=== PATIENT | female | born 1955 | race Caucasian/White ===

== ENCOUNTER → 2018-08-12 | Outpatient (CLI) | payer MEDICARE ==
[2018-08-12 10:28] LABS: HCT 43.9 % (34.0-46.0); MCH 28.3 pg (25.0-35.0); MCHC 31.9 g/dL (31.0-37.0); MCV 88.6 fL (80.0-100.0); Mean Platelet Volume 6.5; Platelet Count 210 k/uL (150-450); RBC 4.95 m/uL (3.80-5.40); RDW 14.3 % (11.5-15.5); WBC 6.2 k/uL (3.8-10.6)
[2018-08-12 17:28] LABS: Vitamin D 25 Hydroxy 41.2 ng/mL (30.0-100.0)
[2018-08-12 18:02] LABS: Albumin 4.5 g/dL (3.80-4.90); Albumin/Globulin Ratio 2.05 (1.20-2.10); Anion Gap 9.3 mmol/L (4.00-12.00); Calcium 9.4 mg/dL (8.7-10.3); Carbon Dioxide 29.7 mmol/L (21.6-31.8); Globulin 2.2 g/dL (1.6-3.3); LDL Cholesterol,Calculated 252.8 mg/dL (0.0-131.0); Potassium 4.4 mmol/L (3.5-5.5); T4, Free (Free Thyroxine) 0.6 ng/dL (0.80-1.80); Total Bilirubin 0.5 mg/dL (0.2-1.2); Total Protein 6.7 g/dL (6.2-8.2); VLDL Calculation 20.2 mg/dL (5.00-40.00)
[2018-08-12 18:22] LABS: Hemoglobin A1C 5.6 % (4.0-6.0)
== END ==
LOC: LABWHC1 09:20
PROVIDERS: ATTEND Nurse Practitioner Adult Health
DX: Z00.00 Encounter for general adult medical examination without abnormal findings (principal); E03.9 Hypothyroidism, unspecified; M81.0 Age-related osteoporosis without current pathological fracture; J31.0 Chronic rhinitis
CPT/HCPCS: 36415; 80053; 80061; 82306; 82607; 83036; 84439; 84443; 85027

== ENCOUNTER → 2018-09-05 | Outpatient (CLI) | payer MEDICARE ==
--- NOTE | 2018-09-05 16:07 | BD ---
EXAMINATION TYPE: Axial Bone Density DATE OF EXAM: 09/05/2018 COMPARISON: NONE CLINICAL HISTORY: Height: 5 FT 1 IN Weight: 163 FRAX RISK QUESTIONS: History of Fracture in Adulthood: YES RISK FACTORS HISTORY OF: Spine Fracture: LUMBAR FX When: 40 YEARS AGO History of Wrist Fracture: RT WRIST When: AGE 11 Family History of Osteoporosis: YES Active: YES Postmenopausal woman: AGE 47 MEDICATIONS: Thyroid Medications: YES Which medication: ARMOUR THYROID How Lon Additional Medications: ARMOUR, THYROID,CLARITIN, Additional History: EXAM MEASUREMENTS: Bone mineral density about the R hip (g/cm2): 0.834 Bone mineral density about the L hip (g/cm2): 0.836 T Score values are as follows: -----R Neck: -1.5 -----L Neck: -1.5 -----R Total: -1.5 -----L Total: -1.3 Bone mineral density has: INCREASED 4.3 % since study of: 2011 Bone mineral density about the L Wrist (g/cm2): 0.558 T Score values are as follows: -----Dist. R+U: -2.5 -----Prox. R+U: -0.6 -----Radius total: -1.9 WRIST NOT DONE BEFORE IMPRESSION: Osteopenia (T Score between -2.5 and -1). There is slightly increased risk of fracture and the patient may be considered for treatment. Re-Screen 2-5 years. NOTE: T-SCORE=SD OF THE YOUNG ADULT MEAN.
--- NOTE | 2018-09-06 10:12 | MM ---
Reason for exam: screening (asymptomatic). Last mammogram was performed 6 years and 1 month ago. History: Patient is postmenopausal. Family history of breast cancer in mother and breast cancer in aunt. Physical Findings: A clinical breast exam by your physician is recommended on an annual basis and results should be correlated with mammographic findings. MG 3D Screening Mammo W/Cad Bilateral CC and MLO view(s) were taken. Prior study comparison: July 23, 2012, bilateral digital screening mammo w/CAD. March 25, 2010, bilateral digital screening mammogram. There are scattered fibroglandular densities. There is no discrete abnormality. No significant changes when compared with prior studies. ASSESSMENT: Negative, BI-RAD 1 RECOMMENDATION: Routine screening mammogram of both breasts in 1 year.
== END | disposition home or self-care (01) ==
LOC: RADMAMWWP 09:42
PROVIDERS: ATTEND Internal Medicine
DX: Z12.31 Encounter for screening mammogram for malignant neoplasm of breast (principal); M85.80 Other specified disorders of bone density and structure, unspecified site; M81.0 Age-related osteoporosis without current pathological fracture
CPT/HCPCS: 77063; 77067; 77080

== ENCOUNTER → 2018-10-29 | Outpatient (CLI) | payer MEDICARE ==
[2018-10-29 18:53] LABS: LDL Cholesterol,Calculated 149.4 mg/dL (0.0-131.0); VLDL Calculation 21.6 mg/dL (5.00-40.00)
== END ==
LOC: LABWHC1 12:01
PROVIDERS: ATTEND Nurse Practitioner Adult Health
DX: E78.5 Hyperlipidemia, unspecified (principal); E03.9 Hypothyroidism, unspecified
CPT/HCPCS: 36415; 80061; 84439; 84443

== ENCOUNTER → 2019-05-14 | Outpatient (CLI) | payer MEDICARE ==
[2019-05-14 19:50] LABS: T4, Free (Free Thyroxine) 0.9 ng/dL (0.80-1.80)
== END | disposition home or self-care (01) ==
LOC: LABWHC1 11:32
PROVIDERS: ATTEND Nurse Practitioner Adult Health
DX: E03.9 Hypothyroidism, unspecified (principal)
CPT/HCPCS: 36415; 84439; 84443; 86376

== ENCOUNTER → 2019-09-25 | Outpatient (CLI) | payer MEDICARE ==
--- NOTE | 2019-09-25 15:44 | FL ---
EXAMINATION: Cervical and Thoracic Esophagram DATE OF EXAM: 09/25/2019 CLINICAL INDICATION: 64-year-old female dysphasia, epigastric pain, reflux. Medication getting stuck in the upper esophagus with regurgitation. COMPARISON: None Total Fluoroscopy Time: 2 minutes 45 seconds. Total images: 54 . FINDINGS: The swallowing mechanism is normal. A tiny Zenker's diverticulum is noted off towards the left posteriorly and there is moderate hypertro phy of the cricopharyngeus. No obstruction to the flow of contrast. 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 There is normal course, caliber, and mucosa of the thoracic esophagus. Moderate tertiary peristaltic waves are present and there is prolonged pooling of contrast within the esophagus requiring upright p ositioning and ingestion of water to clear contrast from the esophagus. Bouts of intraesophageal refl ux are demonstrated. There is a small hiatal hernia. Valsalva and positional maneuvers did not elicit any gastroesophageal reflux on the present exam. IMPRESSION: 1. Dysmotility and presbyesophagus with prolonged pooling of contrast requiring upright positioning a nd ingestion of water to clear the esophagus. Episodes of intraesophageal reflux are seen. 2. Moderate CP hypertrophy and a very tiny Zenker's diverticulum. 3. Small hiatal hernia. Gastroesophageal reflux could not be elicited during the course of the exam. Note that this does not exclude its possibility.
== END ==
LOC: RADUSWWP 10:58
PROVIDERS: ATTEND Internal Medicine Gastroenterology
DX: K22.8 Other specified diseases of esophagus (principal); K21.9 Gastro-esophageal reflux disease without esophagitis
CPT/HCPCS: 74220

== ENCOUNTER 2021-03-15 18:00 | Observation (INO) | payer MEDICARE ==
[2021-03-15] MEDS ORDERED: SODIUM CHLORIDE 0.9% 500 ML 500 ML IV STA (18:35)
[2021-03-15] MEDS ORDERED: DILTIAZEM DRIP BOLUS FROM BAG 1 MG SOLN IV ONE (18:35)
[2021-03-15] MEDS ORDERED: HEPARIN SODIUM 1,000 UN/ML (10ML VL) IV ONE (18:36)
--- NOTE | 2021-03-15 18:39 | ED ---
General Adult HPI - General Chief complaint: Arrhythmia/Palpitations Stated complaint: Heart Palpitations Time Seen by Provider: 03/15/21 18:05 Source: patient, RN notes reviewed, old records reviewed Mode of arrival: wheelchair Limitations: no limitations - History of Present Illness Initial comments: This is a 65-year-old female presents emergency department stating that she's feeling of fluttering in her heart since about 4:00 this afternoon. Patient states she took her heart rate was very fast decided come in. Patient states she might of had a little shortness of breath earlier but currently does not have any shortness of breath.. Patient denies any chest pain or discomfort. Patient denies any recent fever chills or cough. 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 Patient denies any abdominal pain patient's nausea vomiting diarrhea. Patient denies any lightheadedness or dizziness. Patient isn't swollen to the legs or calf tenderness. - Related Data Home Medications Medication Instructions Recorded Confirmed Ginkgo Biloba 500 mg PO DAILY 03/15/21 03/15/21 Levothyroxine Sodium [Synthroid] 100 mcg PO DAILY 03/15/21 03/15/21 Loratadine [Claritin] 10 mg PO DAILY 03/15/21 03/15/21 Multivitamins, Thera [Multivitamin 1 tab PO DAILY 03/15/21 03/15/21 (formulary)] Allergies Allergy/AdvReac Type Severity Reaction Status Date / Time No Known Allergies Allergy Verified 03/15/21 20:05 Review of Systems ROS Statement: Those systems with pertinent positive or pertinent negative responses have been documented in the HPI. ROS Other: All systems not noted in ROS Statement are negative. Past Medical History Past Medical History: Thyroid Disorder Past Surgical History: Tonsillectomy, Tubal Ligation Smoking Status: Never smoker Past Alcohol Use History: Occasional Past Drug Use History: None Reported General Exam - General Exam Comments Initial Comments: GENERAL: Patient is well-developed and well-nourished. Patient is nontoxic and well- hydrated and is in mild distress. ENT: Neck is soft and supple. No significant lymphadenopathy is noted. Oropharynx is clear. Moist mucous membranes. Neck has full range of motion without eliciting any pain. EYES: The sclera were anicteric and conjunctiva were pink and moist. Extraocular movements were intact and pupils were equal round and reactive to light. Eyelids were unremarkable. PULMONARY: Unlabored respirations. Good breath sounds bilaterally. No audible rales rho nchi or wheezing was noted. CARDIOVASCULAR: His heart rates about 150 beats a minute and irregular. ABDOMEN: Soft and nontender with normal bowel sounds. SKIN: Skin is clear with no lesions or rashes and otherwise unremarkable. NEUROLOGIC: Patient is alert and oriented x3. Cranial nerves II through XII are grossly intact. Motor and sensory are also intact. Normal speech, volume and content. Symmetrical smile. MUSCULOSKELETAL: Normal extremities with adequate strength and full range of motion. No lower extremity swelling or edema. No calf tenderness. LYMPHATICS: No significant lymphadenopathy is noted PSYCHIATRIC: Normal psychiatric evaluation. Limitations: no limitations Course Vital Signs 03/15/21 03/15/21 03/15/21 18:06 19:00 19:10 Temperature 97.8 F Pulse Rate 128 H 75 Pulse Rate [ 78 Business Continuity Planning Director ] Respiratory 18 18 Rate Blood Pressure 106/77 121/77 O2 Sat by Pulse 97 96 Oximetry 03/15/21 19:27 Temperature Pulse Rate 74 Pulse Rate [ Business Continuity Planning Director ] Respiratory 18 Rate Blood Pressure O2 Sat by Pulse 96 Oximetry Medical Decision Making - Medical Decision Making EKG shows atrial fibrillation with rapid ventricular response at 142 bpm cardiac is 60 QT interval 316 QTC is 486 per patient's EKG shows some slight ST segment depression in precordial leads V3 through V6. Patient appeared to convert and the EKG showed normal sinus rhythm at 76 bpm SC interval is 180 QRS is 62 QT interval 390 QTC is 441. Patient's ST segment depression has resolved as well. Patient was placed on heparin. Patient's chest x-ray shows no acute abnormality. I spoke with Dr. Steen he agreed to admit the patient admitted the patient wrote admitting orders. - Lab Data Result diagrams: 03/15/21 18:49 03/15/21 18:49 Lab Results 03/15/21 03/15/21 03/15/21 Range/Units 18:49 18:49 18:49 WBC 6.5 (3.8-10.6) k/uL RBC 5.19 (3.80-5.40) m/uL Hgb 15.7 (11.4-16.0) gm/dL Hct 45.4 (34.0-46.0) % MCV 87.5 (80.0-100.0) fL MCH 30.3 (25.0-35.0) pg MCHC 34.6 (31.0-37.0) g/dL RDW 14.1 (11.5-15.5) % Plt Count 201 (150-450) k/uL MPV 7.0 Neutrophils % 59 % Lymphocytes % 30 % Monocytes % 6 % Eosinophils % 2 % Basophils % 1 % Neutrophils # 3.8 (1.3-7.7) k/uL Lymphocytes # 2.0 (1.0-4.8) k/uL Monocytes # 0.4 (0-1.0) k/uL Eosinophils # 0.1 (0-0.7) k/uL Basophils # 0.0 (0-0.2) k/uL PT 9.8 (9.0-12.0) sec INR 0.9 (<1.2) APTT 23.3 (22.0-30.0) sec Sodium 138 (137-145) mmol/L Potassium 4.3 (3.5-5.1) mmol/L Chloride 107 (98-107) mmol/L Carbon Dioxide 22 (22-30) mmol/L Anion Gap 9 mmol/L BUN 18 H (7-17) mg/dL Creatinine 0.62 (0.52-1.04) mg/dL Est GFR (CKD-EPI)AfAm >90 (>60 ml/min/1.73 sqM) Est GFR (CKD-EPI)NonAf >90 (>60 ml/min/1.73 sqM) Glucose 113 H (74-99) mg/dL Calcium 10.0 (8.4-10.2) mg/dL Magnesium 2.1 (1.6-2.3) mg/dL Total Bilirubin 0.3 (0.2-1.3) mg/dL AST 30 (14-36) U/L ALT 24 (4-34) U/L Alkaline Phosphatase 80 (38-126) U/L Troponin I (0.000-0.034) ng/mL Total Protein 7.1 (6.3-8.2) g/dL Albumin 4.5 (3.5-5.0) g/dL TSH 3.060 (0.465-4.680) mIU/L 03/15/21 Range/Units 18:49 WBC (3.8-10.6) k/uL RBC (3.80-5.40) m/uL Hgb (11.4-16.0) gm/dL Hct (34.0-46.0) % MCV (80.0-100.0) fL MCH (25.0-35.0) pg MCHC (31.0-37.0) g/dL RDW (11.5-15.5) % Plt Count (150-450) k/uL MPV Neutrophils % % Lymphocytes % % Monocytes % % Eosinophils % % Basophils % % Neutrophils # (1.3-7.7) k/uL Lymphocytes # (1.0-4.8) k/uL Monocytes # (0-1.0) k/uL Eosinophils # (0-0.7) k/uL Basophils # (0-0.2) k/uL PT (9.0-12.0) sec INR (<1.2) APTT (22.0-30.0) sec Sodium (137-145) mmol/L Potassium (3.5-5.1) mmol/L Chloride (98-107) mmol/L Carbon Dioxide (22-30) mmol/L Anion Gap mmol/L BUN (7-17) mg/dL Creatinine (0.52-1.04) mg/dL Est GFR (CKD-EPI)AfAm (>60 ml/min/1.73 sqM) Est GFR (CKD-EPI)NonAf (>60 ml/min/1.73 sqM) Glucose (74-99) mg/dL Calcium (8.4-10.2) mg/dL Magnesium (1.6-2.3) mg/dL Total Bilirubin (0.2-1.3) mg/dL AST (14-36) U/L ALT (4-34) U/L Alkaline Phosphatase (38-126) U/L Troponin I <0.012 (0.000-0.034) ng/mL Total Protein (6.3-8.2) g/dL Albumin (3.5-5.0) g/dL TSH (0.465-4.680) mIU/L Critical Care Time Critical Care Time: Yes Total Critical Care Time: 35 Disposition Clinical Impression: Atrial fibrillation with rapid ventricular response Disposition: ADMITTED IP TO THIS HOSP Referrals: Odell Navarro MD [Primary Care Provider] - 1-2 days Time of Disposition: 20:58
[2021-03-15] MEDS ORDERED: DILTIAZEM 125 MG in SODIUM CHLORIDE 0.9% 100 ML IV SCH (18:45)
[2021-03-15] MEDS ORDERED: HEPARIN SOD,PORK IN 0.45% NACL 25,000 UNIT in 0.45% NACL 1 250ML.BAG IV SCH (18:45)
[2021-03-15 19:07] LABS: Basophils % (A) 1 %; Eosinophils # (A) 0.1 k/uL (0-0.7); Eosinophils % (A) 2 %; HCT 45.4 % (34.0-46.0); HGB 15.7 gm/dL (11.4-16.0); Lymphocytes % (A) 30 %; MCH 30.3 pg (25.0-35.0); MCHC 34.6 g/dL (31.0-37.0); MCV 87.5 fL (80.0-100.0); Monocytes # (A) 0.4 k/uL (0-1.0); Monocytes % (A) 6 %; Neutrophils # (A) 3.8 k/uL (1.3-7.7); Neutrophils % (A) 59 %; Platelet Count 201 k/uL (150-450); RBC 5.19 m/uL (3.80-5.40); RDW 14.1 % (11.5-15.5); WBC 6.5 k/uL (3.8-10.6)
[2021-03-15 19:14] LABS: INR 0.9 (<1.2)
[2021-03-15 19:15] LABS: Partial Thromboplastin Time 23.3 sec (22.0-30.0); Prothrombin Time 9.8 sec (9.0-12.0)
[2021-03-15 19:19] LABS: ALT 24 U/L (4-34); AST 30 U/L (14-36); African American GFR (CKD) >90 (>60 ml/min/1.73 sqM); Albumin 4.5 g/dL (3.5-5.0); Alkaline Phosphatase 80 U/L (38-126); Anion Gap 9 mmol/L; Blood Urea Nitrogen 18 mg/dL (7-17); Carbon Dioxide 22 mmol/L (22-30); Chloride 107 mmol/L (98-107); Glucose 113 mg/dL (74-99); Magnesium 2.1 mg/dL (1.6-2.3); Non-African American GFR(CKD) >90 (>60 ml/min/1.73 sqM); Potassium 4.3 mmol/L (3.5-5.1); Sodium 138 mmol/L (137-145); Total Bilirubin 0.3 mg/dL (0.2-1.3); Total Protein 7.1 g/dL (6.3-8.2)
--- NOTE | 2021-03-15 20:44 | XR ---
EXAMINATION TYPE: XR chest 2V DATE OF EXAM: 03/15/2021 COMPARISON: 02/03/2021. HISTORY: Palpitations and dysrhythmia. TECHNIQUE: Frontal and lateral views of the chest are obtained. FINDINGS: There is no focal air space opacity, pleural effusion, or pneumothorax seen. The cardiac silhouette size is within normal limits. The osseous structures are intact. IMPRESSION: No acute cardiopulmonary process.
[2021-03-15] MEDS ORDERED: NITROGLYCERIN SL TABS 0.4 MG TAB SUBLINGUAL PRN (21:06)
[2021-03-16 01:27] LABS: Prothrombin Time 10.7 sec (9.0-12.0)
[2021-03-16] MEDS ORDERED: METOPROLOL TARTRATE 25 MG TAB PO SCH (09:00)
[2021-03-16] MEDS ORDERED: ASPIRIN 325 MG TAB PO SCH (09:00)
[2021-03-16] MEDS ORDERED: METOPROLOL TARTRATE 12.5 MG TAB PO SCH (09:00)
[2021-03-16 09:16] VITALS: RESP 16; TEMP 97.5
[2021-03-16] MEDS ORDERED: APIXABAN 5 MG TAB PO SCH (10:10)
--- NOTE | 2021-03-16 11:24 | P.CRDCN ---
History of Present Illness Consult date: 03/16/21 History of present illness: HISTORY OF PRESENT ILLNESS: This is a 65-year-old female with a past medical history significant for hypothyroidism. Patient does not follow with a manager drug safety and denies any previous cardiac history. We have been asked to see the patient in consultation for A. fib with RVR. Patient examined at the bedside. Patient reports she started a new job a few days ago working midnight shift. She states yesterday morning she went to bed around 8 AM and woke up around 2 PM and noticed she was having palpitations and shortness of breath. She had a tax appointment that she went to with her and afterwards she decided to come to the emergency room as she was still having symptoms. Upon presentation to the ER, patient was found to be in A. fib with RVR. The patient was started on a heparin drip and a Cardizem drip. She subsequently converted to sinus mechanism. Telemetry this morning reveals sinus mechanism with a heart rate in the 60s. EKG reveals A. fib with RVR. Subsequent EKG reveals sinus mechanism Chest xray no acute cardiopulmonary process Laboratory data: WBC 6.5. Hemoglobin 15.7. Platelet count 201. Sodium 138. Potassium 4.3. BUN 18. Creatinine 0.62. Magnesium 2.1. Troponin negative 3. TSH 3.060. Current home cardiac medications include none REVIEW OF SYSTEMS: At the time of my exam: CONSTITUTIONAL: Denies fever or chills. HEENT: Denies blurred vision, vision changes, or eye pain. Denies hemoptysis CARDIOVASCULAR: Denies chest pain. Denies orthopnea. Denies PND. Denies palpitations RESPIRATORY: Denies shortness of breath. GASTROINTESTINAL: Denies abdominal pain. Denies nausea or vomiting. HEMATOLOGIC: Denies bleeding disorders. GENITOURINARY: Denies any blood in urine. SKIN: Denies pruitis. Denies rash. PHYSICAL EXAM: VITAL SIGNS: Reviewed. GENERAL: Well-developed in no acute distress. HEENT: Head is normocephalic. Pupils are equal, round. Sclerae anicteric. Mucous membranes of the mouth are moist. Neck supple. No JVD or thyromegaly LUNGS: Respirations even and unlabored. Lungs essentially clear to auscultation bilaterally. HEART: Regular rate and rhythm. S1 and S2 heard. ABDOMEN: Soft. Nondistended. Nontender. EXTREMITIES: Normal range of motion. No clubbing or cyanosis. Peripheral pulses intact. No lower extremity edema NEUROLOGIC: Awake and alert. Oriented x 3. ASSESSMENT: Palpitations New-onset paroxysmal atrial fibrillation with RVR Hypothyroidism PLAN: Obtain 2-D echo to assess cardiac structure and function Continue telemetry monitoring Begin Eliquis 5 mg twice a day. Discontinue IV heparin Begin metoprolol tartrate 25 mg daily TSH obtained and within normal limits Patient may be discharged home this afternoon from a cardiac standpoint. She is to follow up with Dr. Covington in 2 weeks Nurse practitioner note has been reviewed by physician. Signing provider agrees with the documented findings, assessment, and plan of care. Past Medical History Past Medical History: Thyroid Disorder History of Any Multi-Drug Resistant Organisms: None Reported Past Surgical History: Tonsillectomy, Tubal Ligation Additional Past Surgical History / Comment(s): C5-C6 fusion Past Anesthesia/Blood Transfusion Reactions: No Reported Reaction Past Psychological History: No Psychological Hx Reported Smoking Status: Never smoker Past Alcohol Use History: Occasional Past Drug Use History: None Reported - Past Family History Brother(s) Family Medical History: Coronary Artery Disease (CAD) Mother Family Medical History: Coronary Artery Disease (CAD) Medications and Allergies Home Medications Medication Instructions Recorded Confirmed Type Ginkgo Biloba 500 mg PO DAILY 03/15/21 03/15/21 History Levothyroxine Sodium [Synthroid] 100 mcg PO DAILY 03/15/21 03/15/21 History Loratadine [Claritin] 10 mg PO DAILY 03/15/21 03/15/21 History Multivitamins, Thera [Multivitamin 1 tab PO DAILY 03/15/21 03/15/21 History (formulary)] Apixaban [Eliquis] 5 mg PO BID #60 tab 03/16/21 Rx Allergies Allergy/AdvReac Type Severity Reaction Status Date / Time No Known Allergies Allergy Verified 03/15/21 20:05 Physical Exam Vitals: Vital Signs Temp Pulse Pulse Resp BP BP Pulse Ox 03/16/21 08:00 97.5 F L 68 16 117/79 98 03/16/21 03:41 98.1 F 64 15 125/83 97 03/16/21 00:00 97.9 F 69 16 101/67 97 03/15/21 22:16 97.8 F 67 16 109/68 99 03/15/21 21:59 97.9 F 79 18 125/78 97 03/15/21 19:27 74 18 96 03/15/21 19:10 75 18 121/77 96 03/15/21 19:00 78 03/15/21 18:06 97.8 F 128 H 18 106/77 97 Intake and Output 03/15/21 03/16/21 03/16/21 22:59 06:59 14:59 Intake Total 540 540 800 Balance 540 540 800 Intake: Oral 540 540 800 Other: Voiding Method Toilet Toilet Toilet # Voids 1 2 1 Weight 70.307 kg 70.2 kg Results 03/15/21 18:49 03/15/21 18:49 Cardiac Enzymes 03/15/21 03/15/21 03/15/21 Range/Units 18:49 18:49 21:55 AST 30 (14-36) U/L Troponin I <0.012 <0.012 (0.000-0.034) ng/mL 03/16/21 Range/Units 00:36 AST (14-36) U/L Troponin I <0.012 (0.000-0.034) ng/mL Coagulation 03/15/21 03/16/21 03/16/21 Range/Units 18:49 00:36 00:36 PT 9.8 10.7 (9.0-12.0) sec APTT 23.3 49.3 H (22.0-30.0) sec 03/16/21 Range/Units 07:45 PT (9.0-12.0) sec APTT 44.0 H (22.0-30.0) sec CBC 03/15/21 Range/Units 18:49 WBC 6.5 (3.8-10.6) k/uL RBC 5.19 (3.80-5.40) m/uL Hgb 15.7 (11.4-16.0) gm/dL Hct 45.4 (34.0-46.0) % Plt Count 201 (150-450) k/uL Comprehensive Metabolic Panel 03/15/21 Range/Units 18:49 Sodium 138 (137-145) mmol/L Potassium 4.3 (3.5-5.1) mmol/L Chloride 107 (98-107) mmol/L Carbon Dioxide 22 (22-30) mmol/L BUN 18 H (7-17) mg/dL Creatinine 0.62 (0.52-1.04) mg/dL Glucose 113 H (74-99) mg/dL Calcium 10.0 (8.4-10.2) mg/dL AST 30 (14-36) U/L ALT 24 (4-34) U/L Alkaline Phosphatase 80 (38-126) U/L Total Protein 7.1 (6.3-8.2) g/dL Albumin 4.5 (3.5-5.0) g/dL Current Medications Generic Name Dose Route Start Last Admin Trade Name Freq PRN Reason Stop Dose Admin Apixaban 5 mg 03/16/21 10:10 Apixaban 5 Mg Tab PO BID JOSSE Protocol Metoprolol Tartrate 25 mg 03/17/21 09:00 Metoprolol Tartrate 25 Mg Tab PO DAILY JOSSE Nitroglycerin 0.4 mg 03/15/21 21:06 Nitroglycerin Sl Tabs 0.4 Mg Tab SUBLINGUAL Q5M PRN Chest Pain Intake and Output 03/15/21 03/16/21 03/16/21 22:59 06:59 14:59 Intake Total 540 540 800 Balance 540 540 800 Intake: Oral 540 540 800 Other: Voiding Method Toilet Toilet Toilet # Voids 1 2 1 Weight 70.307 kg 70.2 kg 03/15/21 18:49 03/15/21 18:49
[2021-03-16 11:40] LABS: Chol/HDL Ratio 3.55; LDL Cholesterol,Calculated 116.6 mg/dL (0.0-131.0); VLDL Calculation 31.4 mg/dL (5.00-40.00)
[2021-03-16 12:23] VITALS: BP 107/69; PULSE 59
--- NOTE | 2021-03-16 13:10 | P.HPIM ---
History of Present Illness H&P Date: 03/16/21 HISTORY AND PHYSICAL AND DISCHARGE SUMMARY: HISTORY OF PRESENT ILLNESS This is a 65-year-old female patient of Francois Mccord NP, with past medical history of seasonal ALLERGIES, hypothyroidism. The patient complains of fluttering in her chest. She has had this before but not significant. She does not follow with a director operating room. She states that yesterday around 4 PM she started feeling fluttering in her chest and heart rate was going fast, she had shortness of breath. She denies any lightheadedness or dizziness. She denies any history of TIA or stroke. Patient presented to [facility] emergency center for evaluation and found to be afebrile, heart rate 128, blood pressure 106/77, pulse ox 97% on room air. EKG was atrial fibrillation at a heart rate of 142. CBC was unremarkable. Electrolytes were normal. BUN 18 and creatinine 0.62. Blood sugar 113. TSH 3.060. Troponins were negative on 3 draws. Chest x-rays showed no acute cardiopulmonary process. Patient placed on the cardiac stepdown unit and cardiology consult. Echocardiogram has been ordered and patient transitioned from heparin to eliquis, started metoprolol tartrate 25 mg daily. Patient was cleared for discharge from cardiology and plan is to follow-up with Dr. Covington in 2 weeks. She has converted to sinus rhythm. REVIEW OF SYSTEMS Constitutional: No fever, no chills, no night sweats. No weight change. No weakness, fatigue or lethargy. No daytime sleepiness. EENT: No headache. No blurred vision or double vision, no loss of vision. No loss of Hearing, no ringing in the ears, no dizziness. No nasal drainage or congestion. No epistaxis. No sore throat. Lungs: reports shortness of breath, cough, no sputum production. No wheezing. Cardiovascular: No chest pain, no lower extremity edema. Reports palpitations. No paroxysmal nocturnal dyspnea. No orthopnea. No lightheadedness or dizziness. No syncopal episodes. Abdominal: No abdominal pain. No nausea, vomiting. No diarrhea. No con stipation. No bloody or tarry stools.. No loss of appetite. Genitourinary: No dysuria, increased frequency, urgency. No urinary retention. Musculoskeletal: No myalgias. No muscle weakness, no gait dysfunction, no frequent falls. No back pain. No neck pain. Integumentary: No wounds, no lesions. No rash or pruritus. No unusual bruising. No change in hair or nails. Neurologic: No aphasia. No facial droop. No change in mentation. No head injury. No headache. No paralysis. No paresthesia. Psychiatric: No depression. No anxiety. No mood swings. Endocrine: No abnormal blood sugars. No weight change. No excessive sweating or thirst. No cold intolerance. MEDICAL HISTORY Seasonal ALLERGIES Hypothyroidism Paroxysmal atrial fibrillation-new onset SURGICAL HISTORY C5/6 fusion in 1997 Tubal ligation Tonsillectomy Laparoscopic cholecystectomy SOCIAL HISTORY Patient was a smoker for 25 years and quit when she was 34 years old. She was smoking less than a pack per day. She drinks alcohol occasionally. She denies any marijuana or street drug use. She is and lives at home with her . FAMILY HISTORY Mother at age 88 from pneumonia with history of coronary artery disease and stents. Father at age 78 following colon resection. Patient has 2 brothers and 1 sister. One brother has from Maryuri Gehrig's disease and the other siblings are healthy. Patient has 4 children with no major medical problems. PHYSICAL EXAMINATION Gen: This is a 65-year-old female. Patient is resting in bed and appears to be comfortable in no acute distress. HEENT: Head is atraumatic, normocephalic. Pupils equal, round. Sclerae is an icteric. NECK: Supple. No JVD. No lymphadenopathy. No thyromegaly. LUNGS: Clear to auscultation. No wheezes or rhonchi. No intercostal retractions. HEART: Regular rate and rhythm. No murmur. ABDOMEN: Soft. Bowel sounds are present. No masses. No tenderness. EXTREMITIES: No pedal edema. No calf tenderness. NEUROLOGICAL: Patient is awake, alert and oriented x3. Cranial nerves 2 through 12 are grossly intact. ASSESSMENT AND PLAN 1. New onset atrial fibrillation with RVR, paroxysmal atrial fibrillation. Cardiology consult appreciated. Patient started on eliquis 5 g twice daily and Lopressor 25 mg daily, follow-up with Dr. Covington in 2 weeks. 2. Seasonal ALLERGIES. Continue loratadine. 3. Hypothyroidism. TSH normal, continue levothyroxine. Patient placed as an observation status DISCHARGE PLAN Home. DISCHARGE MEDICATION LIST Ginkgo Biloba 500 mg PO DAILY 03/15/21 [History] Levothyroxine Sodium [Synthroid] 100 mcg PO DAILY 03/15/21 [History] Loratadine [Claritin] 10 mg PO DAILY 03/15/21 [History] Multivitamins, Thera [Multivitamin (formulary)] 1 tab PO DAILY 03/15/21 [History] Apixaban [Eliquis] 5 mg PO BID #60 tab 03/16/21 [Rx] Metoprolol Tartrate [Lopressor] 25 mg PO DAILY #30 tab 03/16/21 [Rx] Impression and plan of care have been directed as dictated by the signing physician. Ann Marie Kiser nurse practitioner acting as scribe for signing physician. Past Medical History Past Medical History: Thyroid Disorder History of Any Multi-Drug Resistant Organisms: None Reported Past Surgical History: Tonsillectomy, Tubal Ligation Additional Past Surgical History / Comment(s): C5-C6 fusion Past Anesthesia/Blood Transfusion Reactions: No Reported Reaction Past Psychological History: No Psychological Hx Reported Smoking Status: Never smoker Past Alcohol Use History: Occasional Past Drug Use History: None Reported - Past Family History Brother(s) Family Medical History: Coronary Artery Disease (CAD) Mother Family Medical History: Coronary Artery Disease (CAD) Medications and Allergies Home Medications Medication Instructions Recorded Confirmed Type Ginkgo Biloba 500 mg PO DAILY 03/15/21 03/15/21 History Levothyroxine Sodium [Synthroid] 100 mcg PO DAILY 03/15/21 03/15/21 History Loratadine [Claritin] 10 mg PO DAILY 03/15/21 03/15/21 History Multivitamins, Thera [Multivitamin 1 tab PO DAILY 03/15/21 03/15/21 History (formulary)] Apixaban [Eliquis] 5 mg PO BID #60 tab 03/16/21 Rx Metoprolol Tartrate [Lopressor] 25 mg PO DAILY #30 tab 03/16/21 Rx Allergies Allergy/AdvReac Type Severity Reaction Status Date / Time No Known Allergies Allergy Verified 03/15/21 20:05 Physical Exam Vitals: Vital Signs Temp Pulse Pulse Resp BP BP Pulse Ox 03/16/21 08:00 97.5 F L 68 16 117/79 98 03/16/21 03:41 98.1 F 64 15 125/83 97 03/16/21 00:00 97.9 F 69 16 101/67 97 03/15/21 22:16 97.8 F 67 16 109/68 99 03/15/21 21:59 97.9 F 79 18 125/78 97 03/15/21 19:27 74 18 96 03/15/21 19:10 75 18 121/77 96 03/15/21 19:00 78 03/15/21 18:06 97.8 F 128 H 18 106/77 97 Intake and Output 03/15/21 03/16/21 03/16/21 22:59 06:59 14:59 Intake Total 540 540 800 Balance 540 540 800 Intake: Oral 540 540 800 Other: Voiding Method Toilet Toilet Toilet # Voids 1 2 1 Weight 70.307 kg 70.2 kg Results CBC & Chem 7: 03/15/21 18:49 03/15/21 18:49 Labs: Abnormal Lab Results - Last 24 Hours (Table) 03/15/21 03/16/21 03/16/21 Range/Units 18:49 00:36 07:45 APTT 49.3 H 44.0 H (22.0-30.0) sec BUN 18 H (7-17) mg/dL Glucose 113 H (74-99) mg/dL Thrombosis Risk Factor Assmnt - Choose All That Apply Each Risk Factor Represents 2 Points: Age 61-74 years Thrombosis Risk Factor Assessment Total Risk Factor Score: 2 Thrombosis Risk Factor Assessment Level: Low Risk
--- NOTE | 2021-03-16 14:00 | ECHOF ---
Referral Reason:LV function MEASUREMENTS -------- HEIGHT: 154.9 cm WEIGHT: 69.9 kg BP: 125/83 RVIDd: 2.9 cm (< 3.3) IVSd: 1.0 cm (0.6 - 1.1) LVIDd: 4.0 cm (3.9 - 5.3) LVPWd: 0.9 cm (0.6 - 1.1) IVSs: 1.4 cm LVIDs: 2.5 cm LVPWs: 1.4 cm LA Diam: 3.5 cm (2.7 - 3.8) LAESV Index (A-L): 30.12 ml/m Ao Diam: 3.0 cm (2.0 - 3.7) AV Cusp: 1.8 cm (1.5 - 2.6) MV EXCURSION: 13.189 mm (> 18.000) MV EF SLOPE: 77 mm/s (70 - 150) EPSS: 0.5 cm MV E Lee: 0.87 m/s MV DecT: 286 ms MV A Lee: 0.83 m/s MV E/A Ratio: 1.06 RAP: 5.00 mmHg RVSP: 28.76 mmHg FINDINGS -------- Sinus rhythm. This was a technically good study. The left ventricular size is normal. Left ventricular wall thickness is normal. Overall left vent ricular systolic function is normal with, an EF between 60 - 65 %. The right ventricle is normal in size. LA is midly dilated 29-33ml/m2. The right atrium is normal in size. Interatrial and interventricular septum intact. The aortic valve is trileaflet, and appears structurally normal. No aortic stenosis or regurgitation. There is trace to mild mitral regurgitation. Mild tricuspid regurgitation present. Right ventricular systolic pressure is normal at < 35 mmHg. Trace/mild (physiologic) pulmonic regurgitation. The aortic root size is normal. Normal inferior vena cava with normal inspiratory collapse consistent with estimated right atrial pre ssure of 5 mmHg. There is no pericardial effusion. CONCLUSIONS -------- 1. The left ventricular size is normal. 2. Left ventricular wall thickness is normal. 3. Overall left ventricular systolic function is normal with, an EF between 60 - 65 %. 4. LA is midly dilated 29-33ml/m2. 5. The aortic valve is trileaflet, and appears structurally normal. No aortic stenosis or regurgitati on. 6. There is trace to mild mitral regurgitation. 7. Mild tricuspid regurgitation present. 8. Trace/mild (physiologic) pulmonic regurgitation. 9. There is no pericardial effusion. WELL DRILL OPERATOR CABLE TOOL: Alexandra Infante RDCS
[2021-03-17] MEDS ORDERED: LEVOTHYROXINE 100 MCG TAB PO SCH (06:30)
[2021-03-17] MEDS ORDERED: LORATADINE 10 MG TAB PO SCH (09:00)
[2021-03-17] MEDS ORDERED: METOPROLOL TARTRATE 25 MG TAB PO SCH (09:00)
== END 2021-03-16 14:32 | disposition home or self-care (01) ==
LOC: SUPCPDRO 18:00 → EC 18:00 → 3SCARD 21:08
PROVIDERS: ADMIT Internal Medicine Geriatric Medicine; ATTEND Internal Medicine Geriatric Medicine
DX: I48.0 Paroxysmal atrial fibrillation (principal); J30.2 Other seasonal allergic rhinitis; E03.9 Hypothyroidism, unspecified; Z79.890 Hormone replacement therapy; Z98.51 Tubal ligation status; Z98.1 Arthrodesis status; Z87.891 Personal history of nicotine dependence; Z82.49 Family history of ischemic heart disease and other diseases of the circulatory system
CPT/HCPCS: 99291; 96366 ×2; 93005 ×2; 96361; 96365; 36415; 93306; 80061; 80053; 83735; 84443; 84484 ×2; 85025; 85610 ×2; 85730 ×2; 71046; G0378 ×2; J1644 ×2

== ENCOUNTER 2024-07-02 01:25 | Observation (INO) | payer MEDICARE ==
[2024-07-02] MEDS: DILTIAZEM 125 MG in SODIUM CHLORIDE 0.9% 100 ML IV SCH (02:15)
[2024-07-02] MEDS: DILTIAZEM DRIP BOLUS FROM BAG 1 MG SOLN IV ONE ×2 (02:16→02:41)
[2024-07-02] MEDS: SODIUM CHLORIDE 0.9% 1,000 ML IV STA (02:19)
[2024-07-02] MEDS: ASPIRIN 81 MG PO STA (02:21)
--- NOTE | 2024-07-02 02:37 | ED ---
General Adult HPI - General Chief complaint: Arrhythmia/Palpitations Stated complaint: irregular heart beat Time Seen by Provider: 07/02/24 01:32 Source: patient Mode of arrival: ambulatory Limitations: no limitations - History of Present Illness Initial comments: Patient is a 68-year-old female with a past medical history of atrial fibrillation presenting today for palpitations. Patient states that over the course of the weekend she intermittently felt a fluttery feeling in her chest. Sunday night she had 3 glasses of wine and smoked marijuana and subsequently had a syncopal episode after having the "fluttery feeling" again. She is not sure how long she was unconscious for though was lowered to the ground by family. Did not have any tongue biting, seizure-like activity or urinary incontinence with this episode. Since then she has had intermittent fluttery feelings in her chest. Last night she did have 1 glass of wine. She denies ill icit drug use. About 12:50 AM this morning she began having the fluttery feeling then. She states she took some "ginkgo biloba" without relief of symptoms. She states that over the last week she has also been using CBD patches to help with hip bursitis. She had an episode of atrial fibrillation about 5 years ago and was not started on medications at that time. She does not take any blood thinners currently. She denies any chest pain, dizziness or lightheadedness, difficulty in breathing, cough or hemoptysis, fevers or chills, abdominal pain, nausea, vomiting, diarrhea, lower extremity swelling. Denies smoking cigarettes, history of PE/DVT,'s cancers, recent travel surgery or hospitalizations. - Related Data Home Medications Medication Instructions Recorded Confirmed Ginkgo Biloba 500 mg PO DAILY 03/15/21 03/15/21 Levothyroxine Sodium [Synthroid] 100 mcg PO DAILY 03/15/21 03/15/21 Loratadine [Claritin] 10 mg PO DAILY 03/15/21 03/15/21 Multivitamins, Thera [Multivitamin 1 tab PO DAILY 03/15/21 03/15/21 (formulary)] Previous Rx's Medication Instructions Recorded Apixaban [Eliquis] 5 mg PO BID #60 tab 03/16/21 Metoprolol Tartrate [Lopressor] 25 mg PO DAILY #30 tab 03/16/21 Allergies Allergy/AdvReac Type Severity Reaction Status Date / Time No Known Allergies Allergy Verified 07/02/24 01:29 Review of Systems ROS Statement: Those systems with pertinent positive or pertinent negative responses have been documented in the HPI. ROS Other: All systems not noted in ROS Statement are negative. Past Medical History Past Medical History: Atrial Fibrillation, Thyroid Disorder History of Any Multi-Drug Resistant Organisms: None Reported Past Surgical History: Tonsillectomy, Tubal Ligation Additional Past Surgical History / Comment(s): C5-C6 fusion Past Anesthesia/Blood Transfusion Reactions: No Reported Reaction Past Psychological History: No Psychological Hx Reported Smoking Status: Never smoker Past Alcohol Use History: Occasional Past Drug Use History: Marijuana - Past Family History Brother(s) Family Medical History: Coronary Artery Disease (CAD) Mother Family Medical History: Coronary Artery Disease (CAD) General Exam - General Exam Comments Initial Comments: PE: CONSTITUTIONAL: [no apparent distress, well appearing] SKIN: [warm, dry, no jaundice, hives or petechiae] EYES:[ pupils are equally round, extraocular movements intact without nystagmus, clear conjunctiva, non-icteric sclera] HENT: [normocephalic, atraumatic, moist mucus membranes, oropharynx clear without exudates] NECK: , [Full range of motion, normal appearance] PULMONARY: [clear to auscultation without wheezes, rhonchi, or rales, normal excursion, no accessory muscle use and no stridor] CARDIOVASCULAR:[ regular rate, rhythm, normal S1 and S2. No appreciated murmurs, rubs or gallops. Strong radial pulses with intact distal perfusion. No lower extremity edema] GASTROINTESTINAL: [soft, active bowel sounds throughout, non-tender, non- distended, no palpable masses, no rebound or guarding. No hepatosplenomegaly] GENITOURINARY: MUSCULOSKELETAL: [Extremities have no gross deformity, no edema, redness, or swelling. No calf swelling ] NEUROLOGIC: [_a/o x 3, GCS 15, normal mentation and speech. Moves all e xtremities x 4 without motor or sensory deficit] PSYCHIATRIC:[ _normal mood and affect, thought process is clear and linear] Limitations: no limitations Course Vital Signs 07/02/24 01:26 Temperature 97.6 F Pulse Rate 51 L Respiratory 18 Rate Blood Pressure 156/83 O2 Sat by Pulse 98 Oximetry EKG Findings - EKG Comments: EKG Findings:: Atrial fibrillation with RVR, rate 145 bpm, QRS duration 86 ms, QT/QTc TC 81/364 ms, normal axis, no ST elevations or depressions, slight artifact present in lead V5, no Brugada pattern, no delta waves Medical Decision Making - Medical Decision Making Was pt. sent in by a medical professional or institution (, PA, PROPERTY CLAIMS ADJUSTER, urgent care, hospital, or detention...) When possible be specific @ -[No] Did you speak to anyone other than the patient for history (EMS, parent, family, police, friend...)? What history was obtained from this source @ -[No] Did you review nursing and triage notes (agree or disagree)? Why? @ -[I reviewed and agree with nursing and triage notes] Were old charts reviewed (outside hosp., previous admission, EMS record, old EKG, old radiological studies, urgent care reports/EKG's, detention records)? Report findings @ -Medical records reviewed- Patient had presented on 03/15/2021 for similar sensation, she was admitted to the hospital and started on Eliquis as well as metoprolol 25 mg daily. Of note patient does not currently take either of these medications. Echocardiogram done during that admission showed an EF between 60 and 65% Differential Diagnosis (chest pain, altered mental status, abdominal pain women, abdominal pain men, vaginal bleeding, weakness, fever, dyspnea, syncope, headache, dizziness, GI bleed, back pain, seizure, CVA, palpatations, mental health, musculoskeletal)? @Differential Palpitations Ventricular arrhythmias, atrial arrhythmias, myocardial infarction, anemia, thyrotoxicosis, electrolyte imbalance, hypokalemia, pulmonary embolism, pulmonary disease, drugs, alcohol, anxiety, stress.... This is not meant to be an all-inclusive list. EKG interpreted by me (3pts min.). @ -[As above] X-rays interpreted by me (1pt min.). @No cardiomegaly, consolidations or pleural effusions, no pneumothorax CT interpreted by me (1pt min.). @ -[None done] U/S interpreted by me (1pt. min.). @ -[None done] What testing was considered but not performed or refused? (CT, X-rays, U/S, labs)? Why? @ -[None] What meds were considered but not given or refused? Why? @ -[None] Did you discuss the management of the patient with other professionals (professionals i.e. , PA, PROPERTY CLAIMS ADJUSTER, lab, RT, psych nurse, social group worker, greenhouse florist, teacher, naval gunfire liaison officer, correctional counselor/case manager)? Give summary @ -[No] Was smoking cessation discussed for >3mins.? @ -[No] Was critical care preformed (if so, how long)? @Yes, 45 minutes Were there social determinants of health that impacted care today? How? (Homelessness, low income, unemployed, alcoholism, drug addiction, transportation, low edu. Level, literacy, decrease access to med. care, fpc, rehab)? @ -[No] Was there de-escalation of care discussed even if they declined (Discuss DNR or withdrawal of care, Hospice)? @ -[No] What co-morbidities impacted this encounter? (DM, HTN, Smoking, COPD, CAD, Cancer, CVA, ARF, Chemo, Hep., AIDS, mental health diagnosis, sleep apnea, morbid obesity)? @ -[None] Was patient admitted / discharged? Hospital course, mention meds given and route, prescriptions, significant lab abnormalities, going to OR and other pertinent info. @ -Admission- This is a pleasant 68-year-old female history of atrial fibrillation presenting today for fluttering in her chest. Has been on and off going for at least 4 days. Had a syncopal episode on Sunday. Recent increased intake and alcohol, smoked THC on Sunday as well, drinks two cups of coffee a day, I suspect likely contributing to her presentation today. Here is in A-fib with RVR, blood pressure stable pulse ox 98% on room air, patient well-appearing pleasant and conversant. Discussed plan of care for Cardizem bolus and drip, labs, chest x- ray, patient Dors is mild headache so Tylenol ordered as well. After 10 mg Cardizem bolus patient remained tachycardic. Full 0.25 mg/kg bolus is 11.55 mg, so additional 12 mg bolus given. If remains tachycardic, will trial oral metoprolol as was previously prescribed for the patient. As patient has been and out of a fib since Sunday, will initiate heparin at this point should patient ultimately require rhythm control/ cardioversion. Labs and imaging reviewed. Grossly within normal limits. Abnormal values not concerning for acute pathology related to presenting complaint. Undiagnosed new problem with uncertain prognosis? @ -[No] Drug Therapy requiring intensive monitoring for toxicity (Heparin, Nitro, Insulin, Cardizem)? @ -[No] Were any procedures done? @ -[No] Diagnosis/symptom? @ -A-fib with RVR Acute, or Chronic, or Acute on Chronic? Acute Uncomplicated (without systemic symptoms) or Complicated (systemic symptoms)? Complicated Side effects of treatment? @ -[No] Exacerbation, Progression, or Severe Exacerbation? @ -[No] Poses a threat to life or bodily function? How? (Chest pain, USA, PA, pneumonia, PE, COPD, DKA, ARF, appy, cholecystitis, CVA, Diverticulitis, Homicidal, Suicidal, threat to staff... and all critical care pts) Yes - Lab Data Result diagrams: 07/02/24 01:58 07/02/24 01:58 Lab Results 07/02/24 07/02/24 07/02/24 Range/Units 01:58 01:58 01:58 WBC 5.5 (3.8-10.6) k/uL RBC 4.68 (3.80-5.40) m/uL Hgb 14.1 (11.4-16.0) gm/dL Hct 43.1 (34.0-46.0) % MCV 92.2 (80.0-100.0) fL MCH 30.0 (25.0-35.0) pg MCHC 32.6 (31.0-37.0) g/dL RDW 12.7 (11.5-15.5) % Plt Count 169 (150-450) k/uL MPV 7.6 Neutrophils % 46 % Lymphocytes % 41 % Monocytes % 6 % Eosinophils % 4 % Basophils % 1 % Neutrophils # 2.5 (1.3-7.7) k/uL Lymphocytes # 2.2 (1.0-4.8) k/uL Monocytes # 0.3 (0-1.0) k/uL Eosinophils # 0.2 (0-0.7) k/uL Basophils # 0.1 (0-0.2) k/uL PT 10.3 (10.0-12.5) sec INR 0.9 (<1.2) APTT 23.8 (22.0-30.0) sec Sodium 136 L (137-145) mmol/L Potassium 4.1 (3.5-5.1) mmol/L Chloride 104 (98-107) mmol/L Carbon Dioxide 30 (22-30) mmol/L Anion Gap 2 mmol/L BUN 21 H (7-17) mg/dL Creatinine 1.07 H (0.52-1.04) mg/dL Est GFR (CKD-EPI)AfAm 61 (>60 ml/min/1.73 sqM) Est GFR (CKD-EPI)NonAf 53 (>60 ml/min/1.73 sqM) Glucose 97 (74-99) mg/dL Calcium 10.3 H (8.4-10.2) mg/dL Magnesium 2.1 (1.6-2.3) mg/dL Total Bilirubin 0.4 (0.2-1.3) mg/dL AST 25 (14-36) U/L ALT 22 (4-34) U/L Alkaline Phosphatase 53 (38-126) U/L Troponin I (0.000-0.034) ng/mL Total Protein 6.9 (6.3-8.2) g/dL Albumin 4.4 (3.5-5.0) g/dL 07/02/24 Range/Units 01:58 WBC (3.8-10.6) k/uL RBC (3.80-5.40) m/uL Hgb (11.4-16.0) gm/dL Hct (34.0-46.0) % MCV (80.0-100.0) fL MCH (25.0-35.0) pg MCHC (31.0-37.0) g/dL RDW (11.5-15.5) % Plt Count (150-450) k/uL MPV Neutrophils % % Lymphocytes % % Monocytes % % Eosinophils % % Basophils % % Neutrophils # (1.3-7.7) k/uL Lymphocytes # (1.0-4.8) k/uL Monocytes # (0-1.0) k/uL Eosinophils # (0-0.7) k/uL Basophils # (0-0.2) k/uL PT (10.0-12.5) sec INR (<1.2) APTT (22.0-30.0) sec Sodium (137-145) mmol/L Potassium (3.5-5.1) mmol/L Chloride (98-107) mmol/L Carbon Dioxide (22-30) mmol/L Anion Gap mmol/L BUN (7-17) mg/dL Creatinine (0.52-1.04) mg/dL Est GFR (CKD-EPI)AfAm (>60 ml/min/1.73 sqM) Est GFR (CKD-EPI)NonAf (>60 ml/min/1.73 sqM) Glucose (74-99) mg/dL Calcium (8.4-10.2) mg/dL Magnesium (1.6-2.3) mg/dL Total Bilirubin (0.2-1.3) mg/dL AST (14-36) U/L ALT (4-34) U/L Alkaline Phosphatase (38-126) U/L Troponin I <0.012 (0.000-0.034) ng/mL Total Protein (6.3-8.2) g/dL Albumin (3.5-5.0) g/dL Disposition Clinical Impression: Atrial fibrillation with rapid ventricular response Disposition: ADMITTED IP TO THIS HOSP Condition: Stable Referrals: Logan Turpin [Primary Care Provider] - 1-2 days
[2024-07-02 02:53] LABS: Basophils # (A) 0.1 k/uL (0-0.2); Basophils % (A) 1 %; Eosinophils # (A) 0.2 k/uL (0-0.7); Eosinophils % (A) 4 %; HCT 43.1 % (34.0-46.0); HGB 14.1 gm/dL (11.4-16.0); Lymphocytes # (A) 2.2 k/uL (1.0-4.8); Lymphocytes % (A) 41 %; MCHC 32.6 g/dL (31.0-37.0); MCV 92.2 fL (80.0-100.0); Mean Platelet Volume 7.6; Monocytes # (A) 0.3 k/uL (0-1.0); Monocytes % (A) 6 %; Neutrophils # (A) 2.5 k/uL (1.3-7.7); Neutrophils % (A) 46 %; Platelet Count 169 k/uL (150-450); RBC 4.68 m/uL (3.80-5.40); RDW 12.7 % (11.5-15.5); WBC 5.5 k/uL (3.8-10.6)
[2024-07-02 03:01] LABS: INR 0.9 (<1.2); Partial Thromboplastin Time 23.8 sec (22.0-30.0); Prothrombin Time 10.3 sec (10.0-12.5)
[2024-07-02] MEDS: ACETAMINOPHEN TAB 500 MG TAB PO STA (03:05)
[2024-07-02 03:09] LABS: ALT 22 U/L (4-34); AST 25 U/L (14-36); African American GFR (CKD) 61 (>60 ml/min/1.73 sqM); Albumin 4.4 g/dL (3.5-5.0); Alkaline Phosphatase 53 U/L (38-126); Anion Gap 2 mmol/L; Blood Urea Nitrogen 21 mg/dL (7-17); Calcium 10.3 mg/dL (8.4-10.2); Carbon Dioxide 30 mmol/L (22-30); Chloride 104 mmol/L (98-107); Glucose 97 mg/dL (74-99); Magnesium 2.1 mg/dL (1.6-2.3); Non-African American GFR(CKD) 53 (>60 ml/min/1.73 sqM); Potassium 4.1 mmol/L (3.5-5.1); Sodium 136 mmol/L (137-145); Total Bilirubin 0.4 mg/dL (0.2-1.3); Total Protein 6.9 g/dL (6.3-8.2)
[2024-07-02] MEDS: ACETAMINOPHEN ORAL SUSP 160 MG/5 ML CUP PO ONE (04:13)
[2024-07-02] MEDS: HEPARIN SODIUM 1,000 UN/ML (10ML VL) IV ONE (04:18)
[2024-07-02] MEDS: HEPARIN SOD,PORK IN 0.45% NACL 25,000 UNIT in 0.45% NACL 1 250ML.BAG IV SCH (04:19)
--- NOTE | 2024-07-02 05:07 | XR ---
EXAM: XR Chest, 2 Views CLINICAL HISTORY: ITS.REASON XR Reason: dysrhythmia TECHNIQUE: Frontal and lateral views of the chest. COMPARISON: No relevant prior studies available. FINDINGS: Lungs: No consolidation or mass. Pleural space: No effusion. Heart: No cardiomegaly. Bones/joints: No acute findings. IMPRESSION: No acute cardiopulmonary process.
[2024-07-02] MEDS: METOPROLOL TARTRATE 5 MG/5 ML VIAL IVP STA (05:16)
[2024-07-02] MEDS ORDERED: traMADol 50 MG TAB PO PRN (06:51)
[2024-07-02] MEDS ORDERED: ALPRAZolam 0.25 MG TAB PO PRN (06:51)
[2024-07-02] MEDS ORDERED: NALOXONE 0.4 MG/ML 1 ML VIAL IV PRN (06:51)
[2024-07-02] MEDS: SODIUM CHLORIDE 0.9% 250 ML IV SCH (10:20)
[2024-07-02] MEDS: HEPARIN SODIUM 1,000 UN/ML (10ML VL) IV PRN (11:02)
--- NOTE | 2024-07-02 11:34 | P.CRDCN ---
History of Present Illness History of present illness: HISTORY OF PRESENT ILLNESS: This is a 68-year-old female with a past medical history significant for paroxysmal atrial fibrillation and hypothyroidism. Patient follows in the office with Dr. Cam but has not been seen in the office since September 2021. We have been asked to see the patient in consultation for A-fib with RVR. Patient examined at the bedside in the emergency room. Patient presented to the hospital with a chief complaint of palpitations. Patient was found to be in A- fib with RVR. The patient does have a history of atrial fibrillation. It is noted that the patient was in the office in September 2021, at that time patient was prescribed anticoagulation and metoprolol. The patient had stopped taking both of these medications and decided to take aspirin and fish oil instead to " thin her blood". The patient was initially started on IV Cardizem and she became hypotensive. At the time of examination patient's blood pressure is 82/63. She remains in atrial fibrillation with a heart rate in the 130s. DIAGNOSTICS: - EKG reveals A-fib with RVR - Chest xray negative for acute process - Laboratory data: WBC 5.5. Hemoglobin 14.1. Platelet count 169. Sodium 136. Potassium 4.1. BUN 21. Creatinine 1.07. Magnesium 2.1. Troponin negative x 1. TSH 3.620. - Current home cardiac medications include none - Most recent echocardiogram obtained in March 2021 revealing ejection fraction 60 to 65%, mild TR, and trace to mild MR - Patient underwent Jacob stress test in April 2021 with no ischemia at peak exercise. REVIEW OF SYSTEMS: At the time of my exam: CONSTITUTIONAL: Denies fever or chills. HEENT: Denies blurred vision, vision changes, or eye pain. Denies hemoptysis CARDIOVASCULAR: Denies chest pain. Denies orthopnea. Denies PND. Denies pa lpitations RESPIRATORY: Denies shortness of breath. GASTROINTESTINAL: Denies abdominal pain. Denies nausea or vomiting. HEMATOLOGIC: Denies bleeding disorders. GENITOURINARY: Denies any blood in urine. SKIN: Denies pruitis. Denies rash. PHYSICAL EXAM: VITAL SIGNS: Reviewed. GENERAL: Well-developed in no acute distress. HEENT: Head is normocephalic. Pupils are equal, round. Sclerae anicteric. Mucous membranes of the mouth are moist. Neck supple. No JVD or thyromegaly LUNGS: Respirations even and unlabored. Lungs essentially clear to auscultation bilaterally. HEART: Tachycardic. Irregular rate and rhythm. S1 and S2 heard. ABDOMEN: Soft. Nondistended. Nontender. EXTREMITIES: Normal range of motion. No clubbing or cyanosis. Peripheral pulses intact. No lower extremity edema NEUROLOGIC: Awake and alert. Oriented x 3. ASSESSMENT: Paroxysmal atrial fibrillation with RVR Hypotension, after receiving IV Cardizem Hypothyroidism PLAN: Discontinue IV Cardizem Continue IV heparin. Transition to oral anticoagulation tomorrow Patient to receive 250 cc fluid bolus and then maintenance fluids at 75 cc an hour Begin metoprolol tartrate 25 mg twice a day. Hold for systolic blood pressure less than 90. Continue telemetry monitoring Obtain 2D echo to assess cardiac structure and function TSH checked and within normal limits at 3.620 Further recommendations pending patient course Nurse practitioner note has been reviewed by physician. Signing provider agrees with the documented findings, assessment, and plan of care documented by SOFT DRINK POWDER MIXER as a scribe. Past Medical History Past Medical History: Atrial Fibrillation, Thyroid Disorder History of Any Multi-Drug Resistant Organisms: None Reported Past Surgical History: Tonsillectomy, Tubal Ligation Additional Past Surgical History / Comment(s): C5-C6 fusion Past Anesthesia/Blood Transfusion Reactions: No Reported Reaction Past Psychological History: No Psychological Hx Reported Smoking Status: Never smoker Past Alcohol Use History: Occasional Past Drug Use History: Marijuana - Past Family History Brother(s) Family Medical History: Coronary Artery Disease (CAD) Mother Family Medical History: Coronary Artery Disease (CAD) Medications and Allergies Home Medications Medication Instructions Recorded Confirmed Type Ginkgo Biloba 500 mg PO DAILY 03/15/21 07/02/24 History Levothyroxine Sodium [Synthroid] 100 mcg PO DAILY 03/15/21 07/02/24 History Loratadine [Claritin] 10 mg PO DAILY 03/15/21 07/02/24 History Multivitamins, Thera [Multivitamin 1 tab PO DAILY 03/15/21 07/02/24 History (formulary)] Allergies Allergy/AdvReac Type Severity Reaction Status Date / Time No Known Allergies Allergy Verified 07/02/24 06:59 Physical Exam Vitals: Vital Signs Temp Pulse Resp BP Pulse Ox 07/02/24 07:15 114 H 99/79 98 07/02/24 04:11 120 H 18 98 07/02/24 01:26 97.6 F 51 L 18 156/83 98 Intake and Output 07/01/24 07/02/24 07/02/24 22:59 06:59 14:59 Other: Weight 46.266 kg Results 07/02/24 01:58 07/02/24 01:58 Cardiac Enzymes 07/02/24 07/02/24 Range/Units 01:58 01:58 AST 25 (14-36) U/L Troponin I <0.012 (0.000-0.034) ng/mL Coagulation 07/02/24 Range/Units 01:58 PT 10.3 (10.0-12.5) sec APTT 23.8 (22.0-30.0) sec CBC 07/02/24 Range/Units 01:58 WBC 5.5 (3.8-10.6) k/uL RBC 4.68 (3.80-5.40) m/uL Hgb 14.1 (11.4-16.0) gm/dL Hct 43.1 (34.0-46.0) % Plt Count 169 (150-450) k/uL Comprehensive Metabolic Panel 07/02/24 Range/Units 01:58 Sodium 136 L (137-145) mmol/L Potassium 4.1 (3.5-5.1) mmol/L Chloride 104 (98-107) mmol/L Carbon Dioxide 30 (22-30) mmol/L BUN 21 H (7-17) mg/dL Creatinine 1.07 H (0.52-1.04) mg/dL Glucose 97 (74-99) mg/dL Calcium 10.3 H (8.4-10.2) mg/dL AST 25 (14-36) U/L ALT 22 (4-34) U/L Alkaline Phosphatase 53 (38-126) U/L Total Protein 6.9 (6.3-8.2) g/dL Albumin 4.4 (3.5-5.0) g/dL Current Medications Generic Name Dose Route Start Last Admin Trade Name Freq PRN Reason Stop Dose Admin Acetaminophen 650 mg 07/02/24 06:51 Acetaminophen Tab 325 Mg Tab PO Q6HR PRN Mild Pain or Fever > 100.5 Alprazolam 0.25 mg 07/02/24 06:51 Alprazolam 0.25 Mg Tab PO Q6HR PRN Anxiety Diltiazem HCl 125 mg/ Sodium 125 mls @ 5 mls/hr 07/02/24 02:00 07/02/24 02:15 Chloride IV 5 mg/hr .Q24H [facility] 5 mls/hr Administration 5 MG/HR Heparin Sodium/Sodium Chloride 250 mls @ 5.552 mls/hr 07/02/24 03:45 07/02/24 04:19 25,000 unit/ Sodium Chloride IV 12 units/kg/hr .Q24H [facility] 5.552 mls/hr Administration Protocol 12 UNITS/KG/HR Naloxone HCl 0.2 mg 07/02/24 06:51 Naloxone 0.4 Mg/Ml 1 Ml Vial IV Q2M PRN Opioid Reversal Tramadol HCl 50 mg 07/02/24 06:51 Tramadol 50 Mg Tab PO Q6H PRN Moderate Pain (Scale 4 to 6) Intake and Output 07/01/24 07/02/24 07/02/24 22:59 06:59 14:59 Other: Weight 46.266 kg 07/02/24 01:58 07/02/24 01:58
[2024-07-02] MEDS: METOPROLOL TARTRATE 25 MG TAB PO SCH (11:44)
[2024-07-02] MEDS: SODIUM CHLORIDE 0.9% 1,000 ML IV SCH (11:44)
--- NOTE | 2024-07-02 12:28 | P.HPIM ---
History of Present Illness 68-year-old pleasant female came in with complaints of palpitations found to be in atrial fibrillation with rapid unclear rate patient had a history of atrial fibrillation in the past and was supposed to be on a beta-azael and antico agulation although she stopped using it. Patient previous ejection fraction was 60 to 65% patient is presently not in heart failure did not have any BNP with chest x-ray did not show any pulmonary edema patient clinically is not in heart failure. Patient was given IV Cardizem and after which her blood pressure dropped because of which she was transitioned to metoprolol despite of her continued increase in heart rate. Patient remains on IV heparin which will be transition to oral anticoagulation tomorrow as per cardiology. Patient any fever chills dysuria and does not have any evidence of infection at this time TSH is within normal limits. Chest x-ray did not show any acute process. REVIEW OF SYSTEMS: All other systems are negative except those mentioned in the HPI PHYSICAL EXAMINATION: GENERAL: The patient is alert and oriented x3, not in any acute distress. Well developed, well nourished. HEENT: Pupils are round and equally reacting to light. EOMI. No scleral icterus. No conjunctival pallor. Normocephalic, atraumatic. No pharyngeal erythema. No thyromegaly. CARDIOVASCULAR: S1 and S2 present. No murmurs, rubs, or gallops. PULMONARY: Chest is clear to auscultation, no wheezing or crackles. ABDOMEN: Soft, nontender, nondistended, normoactive bowel sounds. No palpable organomegaly. MUSCULOSKELETAL: No joint swelling or deformity. EXTREMITIES: No cyanosis, clubbing, or pedal edema. NEUROLOGICAL: Gross neurological examination did not reveal any focal deficits. SKIN: No rashes. Assessment and plan -Atrial fibrillation with rapid unclear rate continue with metoprolol monitor overnight patient heart rate remains high. Blood pressure is in 90s systolic at this time. Continue with IV heparin transition to oral anticoagulation tomorrow -Hypothyroidism on levothyroxine Elevated creatinine possibly of mild chronic kidney disease versus acute renal failure. DVT prophylaxis: On IV heparin at this time Past Medical History Past Medical History: Atrial Fibrillation, Thyroid Disorder History of Any Multi-Drug Resistant Organisms: None Reported Past Surgical History: Tonsillectomy, Tubal Ligation Additional Past Surgical History / Comment(s): C5-C6 fusion Past Anesthesia/Blood Transfusion Reactions: No Reported Reaction Past Psychological History: No Psychological Hx Reported Smoking Status: Never smoker Past Alcohol Use History: Occasional Past Drug Use History: Marijuana - Past Family History Brother(s) Family Medical History: Coronary Artery Disease (CAD) Mother Family Medical History: Coronary Artery Disease (CAD) Medications and Allergies Home Medications Medication Instructions Recorded Confirmed Type Ginkgo Biloba 500 mg PO DAILY 03/15/21 07/02/24 History Levothyroxine Sodium [Synthroid] 100 mcg PO DAILY 03/15/21 07/02/24 History Loratadine [Claritin] 10 mg PO DAILY 03/15/21 07/02/24 History Multivitamins, Thera [Multivitamin 1 tab PO DAILY 03/15/21 07/02/24 History (formulary)] Allergies Allergy/AdvReac Type Severity Reaction Status Date / Time No Known Allergies Allergy Verified 07/02/24 06:59 Physical Exam Vitals: Vital Signs Temp Pulse Resp BP Pulse Ox 07/02/24 11:30 125 H 18 92/61 96 07/02/24 11:15 141 H 18 92/61 97 07/02/24 11:00 134 H 17 92/51 97 07/02/24 10:50 112 H 18 92/51 98 07/02/24 10:45 111 H 16 91/79 96 07/02/24 10:30 126 H 16 84/65 96 07/02/24 10:15 111 H 18 84/65 97 07/02/24 10:09 135 H 18 84/65 98 07/02/24 10:00 111 H 16 93/55 97 07/02/24 09:13 128 H 18 93/55 97 07/02/24 09:10 92 13 87/74 87 L 07/02/24 08:40 93 18 82/63 97 07/02/24 07:15 114 H 99/79 98 07/02/24 04:11 120 H 18 98 07/02/24 01:26 97.6 F 51 L 18 156/83 98 Intake and Output 07/01/24 07/02/24 07/02/24 22:59 06:59 14:59 Intake Total 70.244 Balance 70.244 Intake: Intake, IV Titration 70.244 Amount Diltiazem 125 mg In 32.583 Sodium Chloride 0.9% 100 ml @ 5 MG/HR 5 mls/hr IV .Q24H [facility] Rx#:[id number] Heparin Sod,Pork in 0.45% 37.661 NaCl 25,000 unit In 0.45 % NaCl 1 250ml.bag @ 12 UNITS/KG/HR 5.552 mls/hr IV .Q24H [facility] Rx#: [id number] Other: Weight 46.266 kg Results CBC & Chem 7: 07/02/24 01:58 07/02/24 01:58 Labs: Abnormal Lab Results - Last 24 Hours (Table) 07/02/24 07/02/24 Range/Units 01:58 10:13 APTT 35.3 H (22.0-30.0) sec Sodium 136 L (137-145) mmol/L BUN 21 H (7-17) mg/dL Creatinine 1.07 H (0.52-1.04) mg/dL Calcium 10.3 H (8.4-10.2) mg/dL
--- NOTE | 2024-07-02 16:04 | CA ---
Transthoracic Echo Report Name: Deidre Hoang Age: 68 Gender: F : 1955 Exam Date: 07/02/2024 14:33 Exam Location: [facility] Ht (in): 60 Wt (lb): 102 Ordering Physician: Brianna Monroy Attending/Referring Phys: [id number], Eliana Bar Pointer Alexandra Infante, AYDEN Procedure CPT: Indications: LV function, afib rvr, hypotension Cardiac Hx: Technical Quality: Good Contrast 1: Total Dose (mL): Contrast 2: Total Dose (mL): MEASUREMENTS (Male / Female) Normal Values 2D ECHO LV Diastolic Diameter PLAX 3.9 cm 4.2 - 5.9 / 3.9 - 5.3 cm LV Systolic Diameter PLAX 2.7 cm IVS Diastolic Thickness 1.1 cm 0.6 - 1.0 / 0.6 - 0.9 cm LVPW Diastolic Thickness 0.9 cm 0.6 - 1.0 / 0.6 - 0.9 cm LV Relative Wall Thickness 0.5 RV Internal Dim ED PLAX 3.3 cm LA Systolic Diameter LX 3.4 cm 3.0 - 4.0 / 2.7 - 3.8 cm LV Diastolic Volume MOD BP 63.6 cm??? 67 - 155 / 56 - 104 cm??? LV Systolic Volume MOD BP 25.5 cm??? / 19 - 49 cm??? LV Ejection Fraction MOD BP 59.9 % >= 55 % LV Cardiac Index MOD BP 1933.7 cm???/min???m??? LV Diastolic Volume MOD 4C 63.0 cm??? LV Systolic Volume MOD 4C 24.6 cm??? LV Ejection Fraction MOD 4C 60.9 % LV Cardiac Index MOD 4C 1946.4 cm???/min???m??? LV Diastolic Length 4C 7.0 cm LV Systolic Length 4C 5.1 cm LV Diastolic Volume MOD 2C 51.8 cm??? LV Systolic Volume MOD 2C 24.3 cm??? LV Ejection Fraction MOD 2C 53.0 % LV Cardiac Index MOD 2C 1393.4 cm???/min???m??? LV Diastolic Length 2C 5.6 cm LV Systolic Length 2C 4.5 cm LA Volume 49.1 cm??? 18 - 58 / 22 - 52 cm??? LA Volume Index 35.1 cm???/m??? 16 - 28 cm???/m??? M-MODE Aortic Root Diameter MM 2.8 cm AV Cusp Separation MM 1.7 cm DOPPLER AV Peak Velocity 133.5 cm/s AV Peak Gradient 7.1 mmHg MV Area PHT 4.0 cm??? Mitral E Point Velocity 76.0 cm/s Mitral A Point Velocity 74.2 cm/s Mitral E to A Ratio 1.0 MV Deceleration Time 191.2 ms TR Peak Velocity 167.8 cm/s TR Peak Gradient 11.3 mmHg Right Ventricular Systolic Press 17.3 mmHg FINDINGS Left Ventricle Left ventricular ejection fraction is estimated at 55-60 %. Left ventricular cavity size normal. Left ventricular wall thickness normal.Normal left ventricular systolic function with no obvious regional wall motion abnormalities. Right Ventricle Mild right ventricular dilatation. Right ventricular systolic pressure within normal limits. Right Atrium Normal right atrial size. No right atrial thrombus or mass seen. Left Atrium Normal left atrial size. No left atrial thrombus or mass present. Mitral Valve Structurally normal mitral valve. mild to moderate mitral regurgitation. Aortic Valve Trileaflet aortic valve. No aortic stenosis. Trace aortic regurgitation. Tricuspid Valve Structurally normal tricuspid valve. Mild tricuspid regurgitation. Pulmonic Valve Structurally normal pulmonic valve. No pulmonic regurgitation. Pericardium No pericardial or pleural effusion. Aorta Normal size aortic root and proximal ascending aorta. CONCLUSIONS 1. Normal left ventricular size and systolic function 2. Mild tricuspid regurgitation with [id number] mitral regurgitation Previewed by: Dr. Mauri Cardozo MD (Electronically Signed) Final Date: 02 July 2024 16:04
[2024-07-02] MEDS: ACETAMINOPHEN TAB 325 MG TAB PO PRN (17:05)
[2024-07-03] MEDS: LEVOTHYROXINE 100 MCG TAB PO SCH (05:53)
[2024-07-03 08:19] LABS: Basophils % (A) 1 %; Eosinophils # (A) 0.3 k/uL (0-0.7); Eosinophils % (A) 6 %; HGB 13.3 gm/dL (11.4-16.0); Lymphocytes # (A) 1.8 k/uL (1.0-4.8); Lymphocytes % (A) 41 %; MCH 30.6 pg (25.0-35.0); MCHC 33.4 g/dL (31.0-37.0); MCV 91.8 fL (80.0-100.0); Mean Platelet Volume 8.1; Monocytes # (A) 0.3 k/uL (0-1.0); Monocytes % (A) 6 %; Neutrophils # (A) 1.9 k/uL (1.3-7.7); Neutrophils % (A) 44 %; Platelet Count 147 k/uL (150-450); RBC 4.36 m/uL (3.80-5.40); RDW 13.1 % (11.5-15.5); WBC 4.4 k/uL (3.8-10.6)
[2024-07-03 08:22] LABS: African American GFR (CKD) >90 (>60 ml/min/1.73 sqM); Anion Gap 5 mmol/L; Blood Urea Nitrogen 11 mg/dL (7-17); Calcium 9.2 mg/dL (8.4-10.2); Carbon Dioxide 26 mmol/L (22-30); Chloride 106 mmol/L (98-107); Glucose 83 mg/dL (74-99); Non-African American GFR(CKD) 89 (>60 ml/min/1.73 sqM); Potassium 4.2 mmol/L (3.5-5.1); Sodium 137 mmol/L (137-145)
[2024-07-03 09:43] VITALS: RESP 18
[2024-07-03] MEDS: LORATADINE 10 MG TAB PO SCH (09:58)
[2024-07-03] MEDS: MULTIVITAMINS, THERA 1 EACH TAB PO SCH (09:58)
[2024-07-03] MEDS: METOPROLOL TARTRATE 12.5 MG TAB PO SCH (10:02)
[2024-07-03 12:02] VITALS: BP 104/55; PULSE 58; TEMP 97.9
--- NOTE | 2024-07-03 13:03 | P.PN ---
Subjective HISTORY OF PRESENT ILLNESS: This is a 68-year-old female with a past medical history significant for paroxysmal atrial fibrillation and hypothyroidism. Patient follows in the office with Dr. Cam but has not been seen in the office since September 2021. We have been asked to see the patient in consultation for A-fib with RVR. Patient examined at the bedside in the emergency room. Patient presented to the hospital with a chief complaint of palpitations. Patient was found to be in A- fib with RVR. The patient does have a history of atrial fibrillation. It is noted that the patient was in the office in September 2021, at that time patient was prescribed anticoagulation and metoprolol. The patient had stopped taking both of these medications and decided to take aspirin and fish oil instead to " thin her blood". The patient was initially started on IV Cardizem and she became hypotensive. At the time of examination patient's blood pressure is 82/63. She remains in atrial fibrillation with a heart rate in the 130s. DIAGNOSTICS: - EKG reveals A-fib with RVR - Chest xray negative for acute process - Laboratory data: WBC 5.5. Hemoglobin 14.1. Platelet count 169. Sodium 136. Potassium 4.1. BUN 21. Creatinine 1.07. Magnesium 2.1. Troponin negative x 1. TSH 3.620. - Current home cardiac medications include none - Most recent echocardiogram obtained in March 2021 revealing ejection fraction 60 to 65%, mild TR, and trace to mild MR - Patient underwent Jacob stress test in April 2021 with no ischemia at peak exercise. 07/03/2024 Patient examined this morning at the bedside. Patient has converted to sinus mechanism and is maintaining sinus mechanism at the time of examination. Patient denies chest pain or pressure. She denies shortness of breath. Echocardiogram completed revealing ejection fraction 55 to 60%, mild TR, and mild to moderate mitral regurgitation. PHYSICAL EXAM: VITAL SIGNS: Reviewed. GENERAL: Well-developed in no acute distress. HEENT: Head is normocephalic. Pupils are equal, round. Sclerae anicteric. Mucous membranes of the mouth are moist. Neck supple. No JVD or thyromegaly LUNGS: Respirations even and unlabored. Lungs essentially clear to auscultation bilaterally. HEART: Regular rate and rhythm. S1 and S2 heard. ABDOMEN: Soft. Nondistended. Nontender. EXTREMITIES: Normal range of motion. No clubbing or cyanosis. Peripheral pulses intact. No lower extremity edema NEUROLOGIC: Awake and alert. Oriented x 3. ASSESSMENT: Paroxysmal atrial fibrillation with RVR, currently maintaining sinus mechanism Hypotension, after receiving IV Cardizem Hypothyroidism PLAN: Discontinue IV heparin. Begin Xarelto 20 mg at night Change metoprolol to metoprolol tartrate 12.5 mg twice a day Patient is stable for discharge home today from a cardiac standpoint Patient requesting to follow-up postdischarge in the office with Dr. Cardozo Nurse practitioner note has been reviewed by physician. Signing provider agrees with the documented findings, assessment, and plan of care documented by COMMUNICATION AND OUTREACH MANAGER as a scribe. Objective - Vital Signs Vital signs: Vital Signs Temp 97.9 F 07/03/24 11:27 Pulse 58 L 07/03/24 11:27 Resp 18 07/03/24 11:27 BP 104/55 07/03/24 11:27 Pulse Ox 99 07/03/24 11:27 FiO2 Intake & Output 07/02/24 07/03/24 07/03/24 18:59 06:59 18:59 Intake Total 115.799 50.074 130 Balance 115.799 50.074 130 Weight 46.2 kg Intake: IV 10 Invasive Line 1 10 Intake, IV Titration 115.799 50.074 Amount Diltiazem 125 mg In 32.583 Sodium Chloride 0.9% 100 ml @ 5 MG/HR 5 mls/hr IV .Q24H [facility] Rx#:[id number] Heparin Sod,Pork in 0.45% 83.216 50.074 NaCl 25,000 unit In 0.45 % NaCl 1 250ml.bag @ 12 UNITS/KG/HR 5.552 mls/hr IV .Q24H [facility] Rx#: [id number] Oral 120 Other: Voiding Method Toilet Toilet # Voids 1 1 1 # Bowel Movements 0 - Labs CBC & Chem 7: 07/03/24 06:57 07/03/24 06:57 Labs: Abnormal Lab Results - Last 24 Hours (Table) 07/02/24 07/03/24 Range/Units 17:04 06:57 Plt Count 147 L (150-450) k/uL APTT 34.5 H (22.0-30.0) sec
[2024-07-03] MEDS ORDERED: RIVAROXABAN 20 MG TAB PO SCH (17:30)
[2024-07-03] MEDS ORDERED: METOPROLOL TARTRATE 12.5 MG TAB PO SCH (21:00)
--- NOTE | 2024-07-05 20:36 | P.DS ---
Providers Date of admission: 07/02/24 06:52 Attending physician: Vahid Sanchez Consults: 07/02/24 06:51 Consult Physician Routine Consulting Provider: Sebastien Hooker Consult Reason/Comments: A fib Rvr Do you want consulting provider notified?: Yes, Notify in am Primary care physician: Logan Turpin Hospital Course: Final Diagnosis -Atrial fibrillation with rapid unclear rate continue with metoprolol monitor overnight patient heart rate remains high. Blood pressure is in 90s systolic at this time. Continue with IV heparin transition to oral anticoagulation tomorrow -Hypothyroidism on levothyroxine -Elevated creatinine possibly of mild chronic kidney disease versus acute renal failure -Normalized. Discharge Disposition Patient is stable for discharge home. Continue on oral metopolol and oral xarel to on discharge. Follow up with Dr Cardozo in the office in 1 week. Patient to repeat a BMP in 2 to 3 days and follow up with PCP Dr Logan Turpin. Hospital Course 68-year-old pleasant female came in with complaints of palpitations found to be in atrial fibrillation with rapid unclear rate patient had a history of atrial fibrillation in the past and was supposed to be on a beta-azael and anticoagu lation although she stopped using it. The patient had stopped taking both of these medications and decided to take aspirin and fish oil instead to " thin her blood". Patient previous ejection fraction was 60 to 65% patient is presently not in heart failure did not have any BNP with chest x-ray did not show any pulmonary edema patient clinically is not in heart failure. Patient was given IV Cardizem and after which her blood pressure dropped because of which she was transitioned to metoprolol despite of her continued increase in heart rate. Patient was also started on IV heparin. Patient any fever chills dysuria and does not have any evidence of infection at this time TSH is within normal limits. Chest x-ray did not show any acute process. Her heart rate is now controlled. She has been transitioned to eliquis and oral metoprolol. She is not having any chest pain or shortness of breath. She will be discharged home. Please see medication reconciliation for a list of current medications. Thank you for allowing us to participate in the care of this patient. The impression and plan of care has been dictated by Mey Acevedo, Nurse Practitioner as directed. Dr. Le MD I have performed a history and physical examination and medical decision making of this patient, discussed the same with the dictator, and agree with the dictators assessment and plan as written, documented as a scribe. Based on total visit time, I have performed more than 50% of this visit. Patient Condition at Discharge: Stable Plan - Discharge Summary Discharge Rx Participant: No New Discharge Prescriptions: New Metoprolol Tartrate [Lopressor] 12.5 mg PO BID #60 tab Rivaroxaban [Xarelto] 20 mg PO W/SUPPER #30 tab Continue Multivitamins, Thera [Multivitamin (formulary)] 1 tab PO DAILY Ginkgo Biloba 500 mg PO DAILY Loratadine [Claritin] 10 mg PO DAILY Levothyroxine Sodium [Synthroid] 100 mcg PO DAILY Discharge Medication List Ginkgo Biloba 500 mg PO DAILY 03/15/21 [History] Levothyroxine Sodium [Synthroid] 100 mcg PO DAILY 03/15/21 [History] Loratadine [Claritin] 10 mg PO DAILY 03/15/21 [History] Multivitamins, Thera [Multivitamin (formulary)] 1 tab PO DAILY 03/15/21 [History] Metoprolol Tartrate [Lopressor] 12.5 mg PO BID #60 tab 07/03/24 [Rx] Rivaroxaban [Xarelto] 20 mg PO W/SUPPER #30 tab 07/03/24 [Rx] Follow up Appointment(s)/Referral(s): Mauri Cardozo MD [STAFF PHYSICIAN] - 1 Week (please call and make appointment) Logan Turpin [Primary Care Provider] - 1-2 days (please call and make appointement) Ambulatory/Diagnostic Orders: Basic Metabolic Panel [LAB.AMB] Time Frame: 3 Days, Location: None Selected Patient Instructions/Handouts: A-fib (Atrial Fibrillation) (DC) Discharge Disposition: HOME SELF-CARE
== END 2024-07-03 13:30 | disposition home or self-care (01) ==
LOC: EC 01:25 → 3SCARD 06:52
PROVIDERS: ADMIT Hospitalist; ATTEND Hospitalist
DX: I48.0 Paroxysmal atrial fibrillation (principal); I95.9 Hypotension, unspecified; E03.9 Hypothyroidism, unspecified; R79.89 Other specified abnormal findings of blood chemistry; Z79.890 Hormone replacement therapy; Z79.01 Long term (current) use of anticoagulants; Z79.899 Other long term (current) drug therapy; Z82.49 Family history of ischemic heart disease and other diseases of the circulatory system
CPT/HCPCS: 96366 ×2; 96376; 96365; 96367; 96375; 99285; 36415; 93005; 93306; 80053; 80048; 84443; 83735; 84484; 85025 ×2; 85610; 85730 ×2; 71046; G0378 ×2; J1644 ×2